=== PATIENT | female | born 1995 | race Caucasian/White ===

== ENCOUNTER 2017-08-10 10:37 | Emergency (ER) | payer BC, OTHER ==
[~2017-08-10] VITALS: Ht 160 cm; Wt 113.4 kg
--- OUTSIDE RECORDS SUMMARY | 2017-08-10 10:43 | XMS REPORT | Continuity of Care Document ---
Author Author [facility] Address Unknown Phone Unavailable Allergies There is no data. Medications There is no data. Problems Date Dx Coded Attending Type Code Diagnosis Diagnosed By 07/21/2013 EDUIN KLINE MD V03.89 MENINGOCOCCAL DX Procedures There is no data. Results There is no data. Encounters ACCT No. Visit Date/Time Discharge Status Pt. Type Provider Facility Loc./Unit Complaint [id number] 07/21/2013 14:51:00 07/21/2013 23:59:59 [facility] [place] [id number] 08/06/2017 15:20:00 08/06/2017 23:59:59 [facility]
--- OUTSIDE RECORDS SUMMARY | 2017-08-10 10:43 | XMS REPORT ---
Author Author JANETTE FLORES [facility] Address [address] [place] [address] Care Team Providers Care Manager International Name Role Phone JANETTE FLORES Unavailable PROBLEMS Type Condition ICD9-CM Code [id number] Code Onset Dates Condition Status SNOMED Code Problem MENINGOCOCCAL DX V03.89 Active ALLERGIES Substance Reaction Event Type Date Status Mint Chocolate Chip Flavor Unknown Drug Allergy May, Active SOCIAL HISTORY Never Assessed PLAN OF CARE Activity Details Follow Up prn Reason: VITAL SIGNS Weight 318.4 lbs 2016-05-28 Temperature 98.5 degrees Fahrenheit 2016-05-28 Heart Rate 122 bpm 2016-05-28 Respiratory Rate 22 2016-05-28 Blood pressure systolic 130 mmHg 2016-05-28 Blood pressure diastolic 90 mmHg 2016-05-28 MEDICATIONS No Known Medications RESULTS No Results PROCEDURES No Known procedures IMMUNIZATIONS No Known Immunizations
[2017-08-10] MEDS ORDERED: raNItidine 50 MG/2 ML INJ (ZANTAC) ONE (10:55)
[2017-08-10] MEDS ORDERED: diphenhydrAMINE 50 MG/ML INJ (BENADRYL) ONE (10:55)
[2017-08-10] MEDS ORDERED: methylPREDNISolone 125 MG (Solu-MEDROL) VIAL ONE (10:56)
[2017-08-10] MEDS ORDERED: diphenhydrAMINE 50 MG/ML INJ (BENADRYL) IVP ONE ×2 (11:15→12:15)
[2017-08-10] MEDS ORDERED: methylPREDNISolone 125 MG (Solu-MEDROL) VIAL IVP ONE (11:15)
[2017-08-10] MEDS ORDERED: raNItidine 50 MG/2 ML INJ (ZANTAC) IM/IV SCH (11:15)
--- NOTE | 2017-08-10 11:42 | ED Integumentary General ---
General Chief Complaint: Allergic Reaction Stated Complaint: ALLERGIC REACTION Nursing Triage Note: states that she has been on bactrim and hydrocodone for 1 week for a cyst on lower back. States last night began having itching and swelling to face. took benadryl and pepcid last night and this am. Rash is spreading to arms and chest. Source: patient History of Present Illness Date Seen by Provider: Aug 10, 2017 Time Seen by Provider: 11:00 Initial Comments PT ARRIVES VIA POV FROM HOME C/O ALLERGIC REACTION--STATES SHE BEGAN HAVING A RASH AND ITCHING BETWEEN 8 AND 9:00 LAST PM--BEGAN ON ARMS NOW WHOLE BODY IS INVOLVED FACE AND LIPS FEELS SWOLLEN NO PROBLEMS BREATHING OR SWALLOWING AND NO WHEEZING TOOK BENADRYL AND PEPCID LAST NIGHT AND THIS AM PT HAS BEEN ON BACTRIM FOR 8 DAYS FOR PILONIDAL CYST [facility] SE[facility] AT [facility] LAST Saturday08/01/17 WENT BACK LAST Saturday08/03/17 AND WAS GIVEN RX FOR HYDROCODONE WENT BACK Saturday08/06/17 AND HAD THE AREA LANCED. NO PACKING PLACED. DID GET A SHOT OF UNKNOWN ANTIBIOTIC, BUT OTHERWISE NO NEW MEDICATIONS WERE PRESCRIBED THIS AREA IS MUCH BETTER. NO SIGNIFICANT DRAINAGE. PT STATES SHE HAS HAD AN ALLERGIC REACTION TO TOPICAL "BLUE GOO" FOR POISON ENRIQUE , BUT NO KNOWN REACTIONS TO MEDICATIONS STATES SHE HAS HAD MILDER SIMILAR REACTIONS BUT DOES NOT KNOW WHAT HAS CAUSED THEM IN THE PAST NO NEW FOODS. PT STATES SHE HAS HAD A VERY STRESSFUL WEEK AT WORK THIS WEEK--WORKS AT A [employer]. LMP --NOW , NO CONTROL PCP:[facility] Allergies and Home Medications Allergies Uncoded Allergies: POISON ENRIQUE LOTION FROM [facility]- (Allergy, Unknown, 08/10/17) blue lotion TAPE (Allergy, Unknown, 08/10/17) Home Medications Prednisone 10 Mg Tab, 60 MG PO DAILY Prescribed by: TRACY GOVEA on 08/10/17 1333 Patient Home Medication List Home Medication List Reviewed: Yes Constitutional: no symptoms reported EENTM: see HPI Respiratory: no symptoms reported; No cough, No short of breath, No stridor, No wheezing Cardiovascular: no symptoms reported Gastrointestinal: no symptoms reported Genitourinary: no symptoms reported : No Musculoskeletal: no symptoms reported Skin: see HPI Psychiatric/Neurological: No Symptoms Reported Endocrine: No Symptoms Reported Hematologic/Lymphatic: No Symptoms Reported Past Vpfhewn-Yrupnm-Kbwntr Hx Patient Social History Alcohol Use: Denies Use Recreational Drug Use: No Smoking Status: Never a Smoker 2nd Hand Smoke Exposure: No Recent Foreign Travel: No Contact w/Someone Who Travel: No Recent Infectious Disease Expo: No Physical Abuse: No Sexual Abuse: No Mistreated: No Fear: No Immunizations Up To Date Tetanus Booster (TDap): Less than 5yrs Past Medical History Surgeries: Yes Adenoidectomy, Tonsillectomy Respiratory: No Cardiac: No Neurological: No Female Reproductive Disorders: Denies Genitourinary: No Gastrointestinal: No Musculoskeletal: No Endocrine: No HEENT: No Cancer: No Psychosocial: No Nursing Suicide Risk Score: 0 Integumentary: Yes (PILONIDAL CYST/ABSCESS) Blood Disorders: No Physical Exam Vital Signs Vital Signs - First Documented 08/10/17 08/10/17 10:45 13:54 Temp 98.1 Pulse 117 Resp 18 B/P (MAP) 149/90 (109) Pulse Ox 98 Capillary Refill : Less Than 3 Seconds General Appearance: no apparent distress, obese HEENT: PERRL/EOMI, normal ENT inspection, pharynx normal, other (PT REPORTS THAT LIPS FEEL SWOLLEN, BUT NO OVERT SWELLING NOTED BY ME. 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 MOST OF FACE HAS DIFFUSE ERYTHEMA. PILONIDAL CYST/ ABSCESS SITE--I&D SITE WITH SCAB FORMATION. NO ERYTHEMA, INDURATION OR FLUCTUANCE. NO SIGNIFICANT TENDERNESS. NO DRAINAGE. NO STREAKS. ) Skin Problem Location: generalized Progress/Results/Core Measures My Orders Orders - TRACY GOVEA DO Ranitidine Injection (Zantac Injection) (08/10/17 10:55) Diphenhydramine Injection (Benadryl Inje (08/10/17 10:55) Methylprednisolone Sod Succ (Solu-Medrol (08/10/17 10:56) Diphenhydramine Injection (Benadryl Inje (08/10/17 11:15) Methylprednisolone Sod Succ (Solu-Medrol (08/10/17 11:15) Ranitidine Injection (Zantac Injection) (08/10/17 11:15) Epinephrine 1 Mg Injection (Adrenalin I (08/10/17 12:15) Diphenhydramine Injection (Benadryl Inje (08/10/17 12:15) Medications Given in ED Current Medications Medications Dose Ordered Sig/Earnest Route Start Time Stop Time Status Last Admin Dose Admin Diphenhydramine HCl 50 mg ONCE ONCE IVP 08/10/17 11:15 08/10/17 11:16 DC 08/10/17 11:00 50 MG Diphenhydramine HCl 50 mg ONCE ONCE IVP 08/10/17 12:15 08/10/17 12:16 DC 08/10/17 12:15 50 MG Epinephrine HCl 0.3 mg ONCE ONCE IM 08/10/17 12:15 08/10/17 12:16 DC 08/10/17 12:19 0.3 MG Methylprednisolone Sodium Succinate 125 mg ONCE ONCE IVP 08/10/17 11:15 08/10/17 11:16 DC 08/10/17 11:00 125 MG Vital Signs/I&O 08/10/17 08/10/17 10:45 13:54 Temp 98.1 Pulse 117 123 Resp 18 18 B/P (MAP) 149/90 (109) 138/81 Pulse Ox 98 Blood Pressure Mean: 109 Progress Note : Progress Note MILD IMPROVEMENT IN RASH WITH BENADRYL, SOLU-MEDROL AND ZANTAC, MODERATE IMPROVEMENT IN ITCHING GIVEN ADDITIONAL BENADRYL, AND EPINEPHRINE--RASH IS FADING, ITCHING IS GONE WITH MEDICATIONS. Departure Impression Primary Impression: Allergic reaction Additional Impression: SUSPECTED ALLERGY TO BACTRIM Disposition: 01 HOME, SELF-CARE Condition: Improved Departure-Patient Inst. Referrals: SAKINA GUZMAN DO (PCP/Family) Primary Care Physician Patient Instructions: Drug Allergy Add. Discharge Instructions: STOP BACTRIM LOTS OF CLEAR LIQUIDS TAKE BENADRYL 50 MG EVERY 4 HOURS NEEDED FOR RASH AND ITCHING TAKE PEPCID 40 MG TWICE A DAY RETURN TO ER IF SYMPTOMS WORSEN FOLLOW UP WITH YOUR DR ON SATURDAY IF SYMPTOMS STILL PRESENT. All discharge instructions reviewed with patient and/or family. Voiced understanding. Scripts Prednisone (Prednisone) 10 Mg Tab 60 MG PO DAILY, #18 TAB Prov: TRACY GOVEA DO 08/10/17 TRACY GOVEA DO Aug 10, 2017 11:42
[2017-08-10] MEDS ORDERED: EPINEPHrine INJECTION 1 MG/ML AMP IM ONE (12:15)
[2017-08-10] MEDS ORDERED: PRD10T PO ×2 (13:33→18:32)
[2017-08-10 13:54] VITALS: BP 138/81
== END 2017-08-10 13:44 | disposition home or self-care (01) ==
LOC: EDUNIT# 10:37 → ER 10:39
DX: T78.40XA Allergy, unspecified, initial encounter (principal); Z87.2 Personal history of diseases of the skin and subcutaneous tissue; Z90.89 Acquired absence of other organs; Z91.048 Other nonmedicinal substance allergy status; Z88.8 Allergy status to other drugs, medicaments and biological substances
CPT/HCPCS: 96372; 96374; 96375; 96376